=== PATIENT | male | born 1970 | race Caucasian/White ===

== ENCOUNTER 2020-05-31 17:43 | Emergency (ER) | payer MEDICAID ==
[~2020-05-31] VITALS: Ht 188 cm; Wt 97.7 kg
[2020-05-31] MEDS ORDERED: normal saline 1000ML IV soln IVB ONE ×2 (18:00→20:25)
--- NOTE | 2020-05-31 18:30 | NUR ---
PATIENT MOVED FROM OUTSIDE TENT TO ER ROOM 6 AND REPORT GIVEN TO MAINTENANCE CHIEF STAFF.
[2020-05-31 19:04] LABS: BASOPHILS % (AUTO) 0.1 % (0-1); EOSINOPHILS % (AUTO) 0.4 % (0-6); HEMATOCRIT 47.6 % (42.0-52.0); HEMOGLOBIN 16.4 g/dl (14.0-17.9); LYMPHOCYTES # (AUTO) 0.8 X10'3 (1.1-4.8); LYMPHOCYTES % (AUTO) 9.3 % (21-51); MEAN CORPUSCULAR HEMOGLOBIN 29.2 PG (27.0-31.0); MEAN CORPUSCULAR HGB CONC 34.3 g/dL (33.0-36.5); MEAN CORPUSCULAR VOLUME 84.9 FL (78-98); MEAN PLATELET VOLUME 8.5 FL (7.4-10.4); MONOCYTES # (AUTO) 0.6 X10'3 (0-0.9); MONOCYTES % (AUTO) 6.7 % (2-12); NEUTROPHILS # (AUTO) 7.6 X10'3 (1.8-7.7); NEUTROPHILS % (AUTO) 83.5 % (42-75); PLATELET COUNT 197 X10'3 (140-440); RED BLOOD COUNT 5.61 X10'6 (4.70-6.10); RED CELL DISTRIBUTION WIDTH 13.5 % (11.5-14.5); WHITE BLOOD COUNT 9.1 X10'3 (4.5-11.0)
[2020-05-31 19:21] LABS: C-REACTIVE PROTEIN 10.39 MG/DL (0.0-0.5); MAGNESIUM 2.3 MG/DL (1.5-2.4)
[2020-05-31] MEDS ORDERED: dexamethasone sod phosphate 10mg/ml inj IV STA (21:47)
[2020-05-31] MEDS ORDERED: BENZ-16 PO (21:48)
[2020-05-31 22:37] VITALS: BP 131/81
== END 2020-05-31 22:32 | disposition home or self-care (01) ==
LOC: ER 17:44 → EDBD 17:44 → ER 22:32
DX: U07.1 COVID-19 (principal); R19.7 Diarrhea, unspecified; R06.02 Shortness of breath; R05 Cough; R11.10 Vomiting, unspecified; R43.8 Other disturbances of smell and taste; E11.9 Type 2 diabetes mellitus without complications; Z90.89 Acquired absence of other organs; Z98.890 Other specified postprocedural states; Z79.899 Other long term (current) drug therapy
CPT/HCPCS: 36415; 71045; 82728; 82948; 83615; 83690; 83735; 84145; 84484; 85025; 86140; 93005; 96374; 99285; J1100; J7030